=== PATIENT | female | born 1945 | race Caucasian/White ===

== ENCOUNTER 2020-04-16 08:37 | Outpatient (CLI) | payer MEDICARE | END 2020-04-16 08:38 | disposition home or self-care (01) | LOC: CSHCT 08:37 | PROVIDERS: ATTEND Internal Medicine | DX: R10.30 Lower abdominal pain, unspecified (principal); Z93.1 Gastrostomy status; K63.89 Other specified diseases of intestine; K57.90 Diverticulosis of intestine, part unspecified, without perforation or abscess without bleeding | CPT/HCPCS: 74177; 82565 ==

== ENCOUNTER 2020-05-20 15:39 | Emergency (ER) | payer MEDICARE | END 2020-05-20 17:30 | disposition home or self-care (01) | LOC: CSHERS 15:39 | DX: S00.01XA Abrasion of scalp, initial encounter (principal); E03.9 Hypothyroidism, unspecified; W19.XXXA Unspecified fall, initial encounter | CPT/HCPCS: 70450 ==

== ENCOUNTER 2021-06-11 14:38 | Emergency (ER) | payer OTHER, MEDICARE | END 2021-06-11 16:45 | disposition home or self-care (01) | LOC: CSHERS 14:38 | DX: S22.038A Other fracture of third thoracic vertebra, initial encounter for closed fracture (principal); S16.1XXA Strain of muscle, fascia and tendon at neck level, initial encounter; S50.11XA Contusion of right forearm, initial encounter; E03.9 Hypothyroidism, unspecified; W01.0XXA Fall on same level from slipping, tripping and stumbling without subsequent striking against object, initial encounter | CPT/HCPCS: 70450; 72125; 72170 ==

== ENCOUNTER 2021-07-14 09:59 | Outpatient (CLI) | payer MEDICARE | END 2021-07-14 10:00 | disposition home or self-care (01) | LOC: CSHMAMMO 09:59 | PROVIDERS: ATTEND Internal Medicine | DX: Z12.31 Encounter for screening mammogram for malignant neoplasm of breast (principal); Z80.3 Family history of malignant neoplasm of breast | CPT/HCPCS: 77063; 77067 ==

== ENCOUNTER 2021-08-04 15:23 | Emergency (ER) | payer OTHER, MEDICARE ==
[2021-08-04] MEDS ORDERED: Morphine 2 MG/ML VIAL ONE (17:55)
== END 2021-08-04 19:06 | disposition home or self-care (01) ==
LOC: CSHERS 15:23
DX: M54.2 Cervicalgia (principal); G20 Parkinson's disease; W01.0XXA Fall on same level from slipping, tripping and stumbling without subsequent striking against object, initial encounter; M81.0 Age-related osteoporosis without current pathological fracture; E03.9 Hypothyroidism, unspecified; Z79.899 Other long term (current) drug therapy
CPT/HCPCS: 70450; 71045; 72125; 72170; 93005; 96374; 99284; J2270

== ENCOUNTER 2021-08-23 15:02 | Outpatient (CLI) | payer MEDICARE | END 2021-08-23 15:03 | disposition home or self-care (01) | LOC: CSHULT 15:02 | PROVIDERS: ATTEND Specialist | DX: M79.89 Other specified soft tissue disorders (principal) ==

== ENCOUNTER 2022-03-06 19:36 | Emergency (ER) | payer MEDICARE | END 2022-03-06 22:10 | disposition home or self-care (01) | LOC: CSHERS 19:36 | DX: S40.011A Contusion of right shoulder, initial encounter (principal); S70.01XA Contusion of right hip, initial encounter; S40.012A Contusion of left shoulder, initial encounter; S70.02XA Contusion of left hip, initial encounter; W19.XXXA Unspecified fall, initial encounter | CPT/HCPCS: 72192 ==

== ENCOUNTER 2023-03-21 11:11 | Outpatient (CLI) | payer MEDICARE | END 2023-03-21 11:12 | disposition home or self-care (01) | LOC: CSHMAMMO 11:11 | PROVIDERS: ATTEND Internal Medicine | DX: Z13.820 Encounter for screening for osteoporosis (principal); M85.852 Other specified disorders of bone density and structure, left thigh; Z78.0 Asymptomatic menopausal state | CPT/HCPCS: 77080 ==

== ENCOUNTER 2024-09-06 18:28 | Emergency (ER) | payer MEDICARE ==
[2024-09-06] MEDS ORDERED: Ketorolac Tromethamine 30 MG (1 mL) VIAL ONE (19:50)
== END 2024-09-06 20:12 | disposition home or self-care (01) ==
LOC: CSHERS 18:28
DX: S70.02XA Contusion of left hip, initial encounter (principal); S70.01XA Contusion of right hip, initial encounter; S00.93XA Contusion of unspecified part of head, initial encounter; W18.30XA Fall on same level, unspecified, initial encounter
CPT/HCPCS: 70450; 71045; 72125; 72170; J1885; 96374